=== PATIENT | female | born 1980 | race Caucasian/White ===

== ENCOUNTER → 2017-05-12 | Outpatient (CLI) | payer BC ==
--- NOTE | 2017-05-12 11:00 | RADIOLOGY IMAGING REPORT ---
FACILITY: [facility] [place] PATIENT NAME: Melissa Pisano : 1980 MR: [id number] V: [id number] EXAM DATE: ORDERING PHYSICIAN: SHANIKA GONZALEZ TECHNOLOGIST: Location: [facility] Patient: Melissa Pisano : 1980 Visit/Account:[id number] Date of Sevice: 05/12/2017 EXAMINATION: Head CT without intravenous contrast HISTORY: History of migraines TECHNIQUE: Contiguous axial images were obtained from the skull base to the vertex without intraven ous contrast. Sagittal and coronal reformatted images are also submitted. Dose Lowering Technique One of the following dose optimization techniques was utilized in the performance of this exam: Autom ated exposure control; adjustment of the mA and/or kV according to the patient's size; or use of an i terative reconstruction technique. Specific details can be referenced in the facility's radiology C T exam operational policy. COMPARISON: None. FINDINGS: Brain volume: Normal. Ventricles: Normal. Acute ischemic changes: None. Hemorrhage: None. Masses / edema: None. Nixon-white: Negative. White matter: Normal. Vessels: Negative. Extra-axial: Negative. Calvarium / scalp: Negative. Skull base / visualized face: Negative. Visualized sinuses / orbits: Negative. IMPRESSION: Normal noncontrast head CT without evidence of mass lesion, acute infarct or hemorrhage. Report Dictated By: Alba Hunt MD at 05/12/2017 10:53 AM Report E-Signed By: Alba Hunt MD at 05/12/2017 10:56 AM WSN:[id number]
== END ==
LOC: RAD 08:08
PROVIDERS: ATTEND Nurse Practitioner Psychiatric/Mental Health
DX: G43.909 Migraine, unspecified, not intractable, without status migrainosus (principal)
CPT/HCPCS: 70450

== ENCOUNTER → 2017-11-10 | Outpatient (CLI) | payer BC ==
--- NOTE | 2017-11-10 15:31 | RADIOLOGY IMAGING REPORT ---
FACILITY: [facility] PATIENT NAME: CONSTANZA CRABTREE : [id number] MR: [id number] V: [id number] EXAM DATE: ORDERING PHYSICIAN: KEISHA BEDOLLA TECHNOLOGIST: Clarence Faye RDMS, CHAO PROCEDURE:US LEFT BREAST COMPLETE COMPARISON:None. INDICATIONS:breast pain with breast feeding FINDINGS: The entire Left breast was imaged sonographically revealing no abnormality. There is physically no evidence of solid or cystic mass or areas of acoustic shadowing. Clinical follow-up recommended for patient's Left breast pain. DIAGNOSTIC CATEGORY 1--NEGATIVE. RECOMMENDATIONS: CLINICAL EVALUATION. IMPRESSION: BIRADS 1: Negative. No sonographic abnormality of the Left breast seen. Clinical follow-up recommended for patient's Left breast pain. Dictated by: Alba Hunt M.D. on 11/10/2017 at 13:46 Transcribed by: MILKA on 11/10/2017 at 13:55 Approved by: Alba Hunt M.D. on 11/10/2017 at 15:31 [facility]
== END ==
LOC: US 01:14
PROVIDERS: ATTEND Physician Assistant
DX: O92.29 Other disorders of breast associated with pregnancy and the puerperium (principal)

== ENCOUNTER → 2017-12-17 | Outpatient (CLI) | payer BC ==
[~2017-12-17] MED LIST: GADOBENATE 529MG/1ML 15ML VIAL IVP ONE
--- NOTE | 2017-12-17 09:41 | RADIOLOGY IMAGING REPORT ---
FACILITY: [facility] [place] PATIENT NAME: Melissa Pisano : 1980 MR: [id number] V: [id number] EXAM DATE: ORDERING PHYSICIAN: STEVE MARSH TECHNOLOGIST: Location: [facility] Patient: Melissa Pisano : 1980 Visit/Account:[id number] Date of Sevice: 12/17/2017 Examination: MR brain without and with contrast History: Seizures, migraines Comparison: Head CT May 12, 2017 Technique: Multiplane MR imaging was performed through the brain without and with contrast. 11 cc IV multihance was administered. Findings: Diffusion: None Ventricles: Normal Midline shift: None Extraxial fluid: None Midline craniocervical structures: Normal Parenchyma: Punctate left frontal deep white matter high signal focus, axial FLAIR image 30. Normal hippocampi. Otherwise normal parenchyma. Enhancement: No pathologic enhancement Vascular flow voids: Normal Orbits and paranasal sinuses: Normal Impression: 1. No abnormality seen to explain the patient's seizures. 2. Punctate left frontal deep white matter high signal focus may represent the residua of prior micr oischemia or inflammation. Such findings can be seen in the setting of migraine disorders as well. This finding is of doubtful clinical significance. 3. Otherwise normal brain MR without and with contrast. Report Dictated By: Ad Yoo MD at 12/17/2017 9:30 AM Report E-Signed By: Ad Yoo MD at 12/17/2017 9:37 AM WSN:[id number]
== END ==
LOC: MRI 01:22
PROVIDERS: ATTEND Psychiatry & Neurology Neurology
DX: G40.109 Localization-related (focal) (partial) symptomatic epilepsy and epileptic syndromes with simple partial seizures, not intractable, without status epilepticus (principal); G43.019 Migraine without aura, intractable, without status migrainosus
CPT/HCPCS: 70553; A9577